=== PATIENT | male | born 1985 ===

== ENCOUNTER 2017-10-10 10:21 | Emergency (ER) | payer OTHER ==
[~2017-10-10] VITALS: Ht 172.7 cm; Wt 208.7 kg
== END 2017-10-10 12:40 | disposition home or self-care (01) ==
LOC: ER 10:21
DX: S76.112A Strain of left quadriceps muscle, fascia and tendon, initial encounter (principal); X50.9XXA Other and unspecified overexertion or strenuous movements or postures, initial encounter; Y93.01 Activity, walking, marching and hiking; Y92.89 Other specified places as the place of occurrence of the external cause; Y99.8 Other external cause status